=== PATIENT | female | born 1980 ===

== ENCOUNTER 2021-06-18 18:06 | Inpatient (IN) | payer MEDICAID ==
[2021-06-18 19:41] LABS: Basophils % (Auto) 0.3 % (0.0-1.8); Eosinophils # (Auto) 0.1 K/mm3 (0.0-0.4); Eosinophils % (Auto) 0.8 % (0.0-4.3); Hematocrit 41.4 % (30.3-42.9); Hemoglobin 13.8 gm/dl (10.1-14.3); Lymphocytes # (Auto) 2.5 K/mm3 (1.2-5.4); Lymphocytes % (Auto) 16.3 % (13.4-35.0); Mean Corpuscular HGB Conc 33 % (30-34); Mean Corpuscular Volume 81 fl (79-97); Monocytes # (Auto) 1.1 K/mm3 (0.0-0.8); Monocytes % (Auto) 7.4 % (0.0-7.3); Platelet Count 317 K/mm3 (140-440); Red Blood Count 5.09 M/mm3 (3.65-5.03); Red Cell Distribution Width 13.3 % (13.2-15.2)
[2021-06-18] MEDS ORDERED: MINERAL OIL 30 ML ORAL LIQD PO PRN (21:45)
[2021-06-18] MEDS ORDERED: CARBOPROST TROMETHAMINE 250 MCG/1 ML INJ IM PRN (21:45)
[2021-06-18] MEDS ORDERED: LIDOCAINE (2%) 20 MG/1 ML VIAL 20 ML MDV INFILTRATI ONE ×2 (21:45→23:51)
[2021-06-18] MEDS ORDERED: ePHEDrine SULFATE 50 MG/1 ML INJ IV PRN (21:45)
[2021-06-18] MEDS ORDERED: LOPERAMIDE 2 MG CAP PO PRN (21:45)
[2021-06-18] MEDS ORDERED: NalbUPHINE 10 MG/1 ML INJ IV PRN (21:45)
[2021-06-18] MEDS ORDERED: TERBUTALINE 1 MG/1 ML INJ SUB-Q PRN (21:45)
[2021-06-18] MEDS ORDERED: fentaNYL 100 MCG/2 ML INJ IV PRN (21:45)
[2021-06-18] MEDS ORDERED: METHYLERGONOVINE MALEATE 0.2 MG/ML VIAL IM PRN (21:45)
[2021-06-18] MEDS ORDERED: miSOPROStol 200 MCG TAB PR PRN (21:45)
[2021-06-18] MEDS ORDERED: LACTATED RINGERS 1,000 ML IV SCH (21:45)
[2021-06-18] MEDS ORDERED: OXYTOCIN 10 UNIT/1 ML INJ IM PRN (21:45)
[2021-06-18] MEDS ORDERED: OXYTOCIN DRIP 30 UNITS/500 ML BAG IV SCH ×2 (22:00)
--- NOTE | 2021-06-19 00:52 | History and Physical Report ---
History of Present Illness Date of examination: 06/19/21 Date of admission: 06/18/2021 Chief complaint: My water broke History of present illness: Patient is a 41-year-old 3 para 2 who presents at 37-5/7 weeks with complaint of rupture of membranes. Patient has had uncomplicated course. She entered into care in the first trimester. Her only complication has been advanced maternal age. She is GBS negative. Past History Past Medical History: no pertinent history Past Surgical History: no surgical history Family/Genetic History: none Social history: - Obstetrical History Expected Date of Delivery: 07/04/21 Actual Gestation: 37 Week(s) 6 Day(s) : 3 Para: 2 Number of Living Children: 2 Medications and Allergies Allergies Allergy/AdvReac Type Severity Reaction Status Date / Time No Known Allergies Allergy Unverified 05/28/21 20:59 Home Medications Medication Instructions Recorded Confirmed Last Taken Type No Known Home Medications [No 06/18/21 06/18/21 Unknown History Reported Home Medications] Active Meds: Active Medications Acetaminophen (Acetaminophen 325 Mg Tab) 650 mg PO Q4H PRN PRN Reason: Pain, Mild (1-3) Carboprost Tromethamine (Carboprost Tromethamine 250 Mcg/1 Ml Inj) 250 mcg IM ONCE PRN PRN Reason: Uterine Bleeding Ephedrine Sulfate (Ephedrine Sulfate 50 Mg/1 Ml Inj) 10 mg IV Q2M PRN PRN Reason: Hypotension Fentanyl (Fentanyl 100 Mcg/2 Ml Inj) 100 mcg IV Q2H PRN PRN Reason: Pain,Severe (7-10) LABOR PAIN Oxytocin/Sodium Chloride (Pitocin/Ns 30 Unit/500ml) 30 units in 500 mls @ 2 mls/hr IV TITR CARLA; Protocol Lactated Ringer's (Lactated Ringers) 1,000 mls @ 125 mls/hr IV DIRECT CARLA Oxytocin/Sodium Chloride (Pitocin/Ns 30 Unit/500ml) 30 units in 500 mls @ 40 mls/hr IV TITR CARLA; Protocol Loperamide HCl (Loperamide 2 Mg Cap) 2 mg PO ONCE PRN PRN Reason: give with Hemabate Methylergonovine Maleate (Methylergonovine Maleate 0.2 Mg/Ml Vial) 0.2 mg IM ONCE PRN PRN Reason: Uterine Bleeding Mineral Oil (Mineral Oil 30 Ml Oral Liqd) 30 ml PO QHS PRN PRN Reason: Constipation Misoprostol (Misoprostol 200 Mcg Tab) 800 mcg AK ONCE PRN PRN Reason: Uterine Bleeding Nalbuphine HCl (Nalbuphine 10 Mg/1 Ml Inj) 10 mg IV Q2H PRN PRN Reason: Pain, Moderate (4-6) Oxytocin (Oxytocin 10 Unit/1 Ml Inj) 10 unit IM ONCE PRN PRN Reason: Uterine Bleeding Terbutaline Sulfate (Terbutaline 1 Mg/1 Ml Inj) 0.25 mg SUB-Q ONCE PRN PRN Reason: Hyperstimulation/Hypertonicity Review of Systems All systems: negative Constitutional: weight gain, fatigue Breasts: deferred Gastrointestinal: abdominal pain Genitourinary: deferred, leakage of fluid, contractions - Vital Signs Vital signs: Vital Signs Pulse BP Pulse Ox 89 127/84 97 06/18/21 18:25 06/18/21 18:25 06/18/21 18:25 Temp Pulse Resp BP Pulse Ox 98.5 F 87 20 132/63 0 L 06/18/21 20:51 06/19/21 00:43 06/18/21 18:48 06/19/21 00:35 06/19/21 00:43 - Physical Exam Breasts: Cardiovascular: Regular rate, Normal S1, Normal S2 Lungs: Positive: Clear to auscultation, Normal air movement Abdomen: Positive: normal appearance, soft, normal bowel sounds. Negative: distention, tenderness Genitourinary (Female): Positive: normal external genitalia, normal perenium Vulva: both: normal Vagina: Positive: normal moisture. Negative: discharge Cervix: Negative: lesion, discharge Uterus: Positive: normal size, normal contour Adnexa: both: normal Anus/Rectum: Positive: normal perianal skin, heme negative. Negative: rectal mass, hemorrhoids Extremities: Deep Tendon Reflex Grade: Normal +2 - Obstetrical FHR: auscultation normal Uterine Contraction Monitor Mode: Palpation Cervical Dilatation: 2.5 Cervical Effacement Percentage: 50 station: -2 Uterine Contraction Frequency (min): 5 Uterine Contraction Pattern: Regular Uterine Tone Measurement Phase: Contraction Uterine Contraction Intensity: Moderate Results Result Diagrams: 06/18/21 18:50 Abnormal lab results 06/18/21 Range/Units 18:50 WBC 15.0 H (4.5-11.0) K/mm3 RBC 5.09 H (3.65-5.03) M/mm3 MCH 27 L (28-32) pg [place] % (Auto) 7.4 H (0.0-7.3) % [place] # (Auto) 1.1 H (0.0-0.8) K/mm3 Seg Neutrophils % 75.2 H (40.0-70.0) % Seg Neutrophils # 11.3 H (1.8-7.7) K/mm3 All other labs normal. Assessment and Plan Patient is a 41-year-old 3 para 2 at 37-5/7 weeks who presented to labor with rupture of membranes. Will admit patient for expectant management. Patient is GBS negative. Patient had epidural but she wants one. Anticipate
--- NOTE | 2021-06-19 00:55 | Procedure Note ---
OB Delivery Note - Delivery Date of Delivery: 06/19/21 Surgeon: JESSICA JAY Estimated blood loss: 100cc - Vaginal Delivery presentation: vertex Delivery position: OP Intrapartum events: PROM->1hr before delivery Delivery induction: none Delivery augmentation: pitocin Delivery monitor: external FHT, external uterine Route of delivery: Delivery placenta: spontaneous Delivery cord: 3 umbilical vessels Episiotomy: none Delivery laceration: none Anesthesia: none Delivery comments: Viable male delivered over intact perineum at 1227 a.m. . had spontaneous cry and was placed on maternal abdomen. Cord was clamped and cut when finished pulsating. Weight is pounds for ounces. Apgars 8/9. Placenta was delivered spontaneously and intact with three-vessel cord. Patient had no lacerations.. Excellent hemostasis. Patient tolerated procedure well. - Infant A at 1 minute: 8 at 5 minutes: 9 Gender: Male (6 pounds 4 ounces)
[2021-06-19] MEDS: ACETAMINOPHEN 325 MG TAB PO PRN ×3 (01:26→11:13)
[2021-06-19] MEDS ORDERED: ONDANSETRON 4 MG/2 ML INJ IV PRN (16:53)
[2021-06-19] MEDS ORDERED: PROMETHAZINE 25 MG TAB PO PRN (16:53)
[2021-06-19] MEDS ORDERED: HYDROcodone/ACETAMINOPHEN 5-325 MG TAB PO PRN (16:53)
[2021-06-19] MEDS ORDERED: PROMETHAZINE 25 MG RECT SUPP PR PRN (16:53)
[2021-06-19] MEDS ORDERED: LANOLIN/ZINC/DIMETHICONE (LANSINOH) 7 GM TP PRN (16:53)
[2021-06-19] MEDS ORDERED: WITCH HAZEL/ GLYCERIN PAD TP PRN (16:53)
[2021-06-19] MEDS ORDERED: diphenhydrAMINE 25 MG CAP PO PRN (16:53)
[2021-06-19] MEDS ORDERED: MAGNESIUM HYDROXIDE (MOM) ORAL LIQD UDC PO PRN (16:53)
[2021-06-19] MEDS: IBUPROFEN 600 MG TAB PO SCH ×2 (18:19→23:43)
[2021-06-19] MEDS: PRENATAL VIT27-FE FUMARATE-FOLIC ACID VIT TAB PO SCH (18:19)
[2021-06-20] MEDS: IBUPROFEN 600 MG TAB PO SCH (06:16)
[2021-06-20 08:00] LABS: Hematocrit 38.1 % (30.3-42.9); Hemoglobin 12.5 gm/dl (10.1-14.3)
--- NOTE | 2021-06-20 09:07 | Progress Note ---
Assessment and Plan PPD 1 s/p . Doing well. Plan for discharge on today Subjective - Subjective Date of service: 06/20/21 Interval history: Patient is a 41-year-old 3 para 2 who presents at 37-5/7 weeks with complaint of rupture of membranes. Patient has had uncomplicated course. She entered into care in the first trimester. Her only complication has been advanced maternal age. She is GBS negative. Patient reports: appetite normal, voiding normally, pain well controlled, ambulating normally [place]: doing well Objective - Vital Signs Latest vital signs: Vital Signs Temp Pulse Resp BP BP Pulse Ox Pulse Ox 06/20/21 08:20 98 06/20/21 08:12 97.8 F 77 18 126/82 98 06/20/21 06:16 18 06/20/21 00:27 97.6 F 79 20 123/73 06/19/21 23:43 20 06/19/21 19:45 98 06/19/21 17:23 97.9 F 71 18 121/73 97 06/19/21 11:57 97.5 F L 78 18 129/64 97 Intake and Output 06/19/21 06/20/21 06/20/21 22:59 06:59 14:59 Intake Total 360 240 Balance 360 240 Intake: Oral 240 Intake, Free Water 360 Other: Total, Intake Amount 240 # Voids Void 1 2 1 - Exam Breasts: Present: deferred Cardiovascular: Present: Regular rate, Normal S1, Normal S2 Lungs: Present: Clear to auscultation, Normal air movement Abdomen: Present: normal appearance, soft, normal bowel sounds Uterus: Present: normal, firm, fundal height below umbilicus Extremities: Present: normal
--- NOTE | 2021-06-20 09:09 | Discharge Summary ---
Providers - Providers Date of Admission: 06/18/21 21:45 Date of discharge: 06/20/21 Attending physician: JESSICA JAY Primary care physician: JESSICA JAY Hospitalization Reason for admission: active labor, rupture of membranes Delivery: Episiotomy: none Laceration: none complications: none Discharge diagnosis: IUP at term delivered Agness baby: male Hospital course: unremarkable Condition at discharge: Good Disposition: 01 HOME / SELF CARE / HOMELESS Plan - Discharge Medications Prescriptions: Ibuprofen [Motrin 600 MG tab] 600 mg PO Q6H #30 tablet - Provider Discharge Summary Activity: routine, no sex for 6 weeks, no heavy lifting 4 weeks, no strenuous exercise Diet: routine Instructions: routine Additional instructions: [] Smoking cessation referral if applicable(refer to patient education folder for contact #) [] Refer to [facility] Booklet Call your doctor immediately for: * Fever > 100.5 * Heavy vaginal bleeding ( >1 pad per hour) * Severe persistent headache * Shortness of breath * Reddened, hot, painful area to leg or breast * Drainage or odor from incision. * Keep incision clean and dry at all times and follow doctor's instructions regarding bathing/showering - Follow up plan Follow up: JESSICA JAY MD [Primary Care Provider] - 6 Weeks
[2021-06-20] MEDS: PRENATAL VIT27-FE FUMARATE-FOLIC ACID VIT TAB PO SCH (10:46)
[2021-06-20 12:30] VITALS: BP 126/69
== END 2021-06-20 12:55 | disposition home or self-care (01) | DRG 775 ==
LOC: TRG 18:06 → APU 18:08 → LD 19:13 → TRG 21:45 → LD 21:45 → OB 06-19 02:05
PROVIDERS: ADMIT Obstetrics & Gynecology; ATTEND Obstetrics & Gynecology
PROC: 10E0XZZ Delivery of Products of Conception, External Approach (ICD-10-PCS; principal; 2021-06-19)
DX: O42.02 Full-term premature rupture of membranes, onset of labor within 24 hours of rupture (principal); Z3A.37 37 weeks gestation of pregnancy; Z37.0 Single live birth; Z20.822 Contact with and (suspected) exposure to COVID-19
CPT/HCPCS: 36415; 85014; 85018; 85025; 86850; 86900; 86901; 88307; 99211; G0378; G0463; U0003